=== PATIENT | female | born 1990 | race Caucasian/White ===

== ENCOUNTER → 2018-04-12 12:23 | Outpatient (CLI) | payer MEDICAID, SELFPAY ==
[2017-01-21 12:25] VITALS: BMI 45.1
[2018-04-12 16:17] LABS: Chlamydia Trachomatis by PCR Negative (Negative); Neisserai gonorrhoeae by PCR Negative (Negative); Probe Check PASS; Sample Adequacy Control PASS; Specimen Processing Control PASS
[2018-04-14 10:39] LABS: HPV Reflexed? NOT INDICATED
== END ==
PROVIDERS: Referring Provider Obstetrics & Gynecology; Visit Provider Obstetrics & Gynecology
DX: Z12.4 Encounter for screening for malignant neoplasm of cervix (principal); Z11.3 Encounter for screening for infections with a predominantly sexual mode of transmission
CPT/HCPCS: 87491; 87591; 88175; G0145

== ENCOUNTER 2019-04-06 10:14 | Emergency (ER) | payer SELFPAY ==
[2019-04-06 10:15] VITALS: BP 157/92; PULSE 73; RESP 15; TEMP 36.7; O2SAT 98; BMI 46.7
--- NOTE | 2019-04-06 10:31 | ED.DCSUM_ITS ---
History of Present Illness Chief Complaint: Flank Pain Informant: Patient - Abdominal Pain/Flank Pain Onset: Hours - 7 Context: Sudden Onset - awoke her from sleep Timing: Continuous, Waxes and wanes Quality: Aching Location: LLQ - w/ radiation into left low back Current Severity: Moderate Maximum Severity: Severe Worsened by: Nothing Relieved by: Nothing - Nausea/Vomiting/Emesis GI Symptom: Negative for: Nausea, Vomiting - Diarrhea/Melena/Hematochezia GI Symptom: Negative for: Diarrhea, Melena, Hematochezia Associated Symptoms: Urgency - feels like I need to go but then not much comes out. Negative for: Dysuria, Frequency, Hematuria Narrative: Patient states she had an ovarian cyst on the right side at one point and she is having pain in that area but the pain is colicky and radiating into her low back which is unusual, as well as feeling like she needs to urinate but then having very little or nothing come out. She has never had a kidney stone before. She states pushing on her abdomen makes the pain feel better. She denies any vomiting. No vaginal complaints. History of tubal ligation in the past. This woke her up from sleep this morning, she was fine before she went to bed. - Past Medical History (1) Ovarian cyst Status: Chronic Past Medical History - Allergies and Home Meds Allergies/Adverse Reactions: Allergies morphine Allergy (Verified 04/06/19 10:46) Itching Primary Care Physician: Care Physician,No Primary [Primary Care Provider] - Smoking Status: Never smoker Drugs: None Review of Systems General: Denies: Chills, Fever, Sweats Eyes: Denies: Visual changes - bilaterally, Diplopia ENT: Denies: Rhinorrhea, Sore throat Cardiovascular: Denies: Chest pain, Palpitations Respiratory: Denies: Dyspnea, Cough, Dyspnea on exertion Gastrointestinal: Reports: Abdominal pain. Denies: Nausea, Vomiting, Diarrhea, Melena, Hematochezia Genitourinary: Reports: - - urgency. Denies: Dysuria, Hematuria, Frequency Musculoskeletal: Reports: Back pain. Denies: Extremity Pain Skin: Denies: Rash, Wounds Neurological: Denies: Headache, Weakness, Numbness Physical Exam Vital Signs/Narrative: Vital Signs Temp Pulse Resp BP Pulse Ox 04/06/19 10:15 98.1 F 73 15 157/92 H 98 General: Well nourished, Well developed, Obese, Acute Distress - mild, painful, at times Head: Normocephalic, Atraumatic Eyes: Perrl, EOMI ENT: Moist mucous membranes, No rhinorrhea Neck: Supple, Nontender Cardiovascular: Regular rate, Regular rhythm, No murmurs Respiratory: No distress, CTA bilaterally, Chest nontender Abdomen: Soft, Nontender, Nondistended, Normal bowel sounds. Negative for: Pulsatile mass Back: Nontender, Normal Inspection. Negative for: CVA tenderness Extremities: Nontender, No edema Skin: Normal color, No rash, No Trauma Neurological: Alert, Oriented x3, Cranial nerves II-XII grossly intact, Normal Strength, Normal Sensation, Normal Gait Psychological: Normal affect, Normal Mood Diagnostic/Tx/Re-eval Impressions Abdomen/Pelvis CT 04/06/19 12:28 IMPRESSION: 1.4 cm x 0.6 cm calculus in the distal portion of the right ureter at the level of the ureterovesical junction. Electronically Signed: Nicolás Larios, at 13:01 EST , Service support , 04/06/19 12:28 CT Abd [Abdomen/Pelvis without Cont] [CT] Stat Laboratory Results 04/06/19 11:10 Urine Color Yellow Urine Clarity Sl. Cloudy Urine pH 5.0 Ur Specific [place] 1.020 Urine Protein Negative Urine Glucose (UA) Normal Urine Ketones Negative Urine Occult Blood 150 H Urine Nitrite Negative Urine Bilirubin Negative Urine Urobilinogen Normal Ur Leukocyte Esterase 100 H Urine RBC 10-25 SEEN Urine WBC 10-25 SEEN Ur Squamous Epith Cells 5-10 SEEN Urine Bacteria 1+ Urine Mucus 0 SEEN Urine Test Negative - Medical Decision Making After a dose of Toradol the patient's symptoms are resolved and she is feeling much better. She was able to urinate and it shows 100 leukocyte esterase with 10-20 red and white blood cells with few epithelials. This was sent for culture and she will be placed on empiric antibiotic therapy. She is not septic. She is doing very well clinically and hemodynamically. CT as above shows a long kidney stone at the UVJ. It is possible she could pass this with expectant management. I discussed this with her and reasons to follow-up with urology, and reasons to return the ER which include uncontrollable symptoms, fever, hematuria, urinary retention, and she is comfortable with all of this. ED Disposition - Plan for ED Patient: Disposition: Home or Assisted Living Diagnosis: Ureteral colic, Urolithiasis Instructions: KIDNEY STONE w/ Colic Prescriptions: Smz/Tmp Ds [Bactrim Ds] 1 tab PO BID #14 tab Transmission Status: Pending to [id number] Hydrocodone Bitart/Apap 5-325 [[place] 5MG-325MG] 1 tablet PO Q4H PRN PRN 3 Days #15 tablet PRN Reason: Pain Transmission Status: Sent to [id number] Referrals: Sandra Barbosa MD [STAFF PHYSICIAN] - 1 Week if not improving Additional Instructions: May add ibuprofen or Aleve to the prescription pain medication as needed.
[2019-04-06] MEDS: Ondansetron ODT 4 MG Tablet 8 MG PO (11:07)
[2019-04-06] MEDS: Ketorolac 30 MG/ML Syringe 60 MG IM (11:07)
[2019-04-06 11:21] LABS: Mucous, Urine 0 SEEN /hpf (<or=2+)
[2019-04-06 11:26] LABS: Color, Urine Yellow (Yellow); Glucose, Dipstick Normal (Normal); Ketone-Dipstick Negative (Negative); Leukocyte Esterase-Dipstick 100 /ul (Negative); Nitrite-Dipstick Negative (Negative); Occult Blood-Urine 150 /ul (Negative); Protein-Dipstick Negative (Negative); Urine Bilirubin Dipstick Negative (Negative); Urine Clarity Sl. Cloudy (Clear); Urine Urobilinogen Normal (Normal)
[2019-04-06 11:32] LABS: Bacteria 1+ /hpf (None Seen); Red Blood Cells-Urine 10-25 SEEN /hpf (0-5); Squamous Epithelial Cells - UA 5-10 SEEN /hpf (5-10); White Blood Cells 10-25 SEEN /hpf (0-5)
[2019-04-06 11:33] LABS: Internal QC Validated? YES +Cl - CLEAR BKGD; Pregnancy, Urine Negative Negative
[2019-04-06 12:26] VITALS: RESP 17
--- NOTE | 2019-04-06 12:28 | CT_ITS ---
STUDY: CT ABDOMEN AND PELVIS WITHOUT CONTRAST REASON FOR EXAM: Female, 28 years old. RIGHT FLANK PAIN -- TACHO G-TUBAL RADIATION DOSAGE (If Supplied By Facility): CTDIvol = ( 33.28 ) mGy, DLP = ( 1737.83 ) mGycm TECHNIQUE: Transaxial images were obtained from the dome of the diaphragm to the symphysis pubis without oral contrast, and without intravenous contrast. Sagittal and coronal images were reconstructed. Individualized dose optimization techniques were used for this CT. COMPARISON: None. FINDINGS: The visualized lung bases are unremarkable. The visualized portions of the heart are within normal limits. Normal liver. Normal gallbladder and extrahepatic biliary system. Normal spleen. Normal pancreas. Normal bilateral adrenal glands. There is a 1.4 cm x 0.6 cm calculus in the distal portion of the right ureter at the level of the ureterovesical junction. This causes minimal degree of distal right ureteral dilatation. Normal left kidney. There is a small hiatal hernia. Normal small intestine. Normal colon. The appendix is visualized and appears normal. Normal abdominal aorta. Normal inferior vena cava. Normal retroperitoneum. Normal urinary bladder. Normal abdominal wall. Normal osseous structures. CT/Abdomen/Pelvis without Cont IMPRESSION: 1.4 cm x 0.6 cm calculus in the distal portion of the right ureter at the level of the ureterovesical junction. Electronically Signed: Nicolás Larios, at 13:01 EST , Service support ,
[2019-04-06 13:15] VITALS: BP 142/75; PULSE 62; RESP 18; TEMP 37; O2SAT 100
== END 2019-04-06 13:19 | disposition home or self-care (01) ==
PROVIDERS: Emergency Provider Emergency Medicine
DX: N20.0 Calculus of kidney (principal); E66.9 Obesity, unspecified
CPT/HCPCS: 74176; 81001; 81025; 87086; 87088; 96372; 99283

== ENCOUNTER 2019-08-03 08:57 | Emergency (ER) | payer MEDICAID, SELFPAY ==
[2019-08-03 09:00] VITALS: BP 136/83; PULSE 89; RESP 18; TEMP 36.3; O2SAT 99; BMI 47.6
--- NOTE | 2019-08-03 09:16 | RAD_ITS ---
STUDY: X-RAY LEFT FOOT, GREAT TOE REASON FOR EXAM: Female, 29 years old. NO INJURY. SEVERE BIG TOE PAIN TECHNIQUE: 3 view(s) of the toe were obtained. COMPARISON: None. FINDINGS: Normal visualized metatarsus. Normal metatarsophalangeal (M.T.P) joint. Normal interphalangeal joints. Normal phalanges and interphalangeal joints. Soft tissue swelling. RAD/Toe(s) Min 2 Views IMPRESSION: Soft tissue swelling. Electronically Signed: Nicolás Larios, at 9:59 EDT , Service support ,
--- NOTE | 2019-08-03 09:18 | ED.DCSUM_ITS ---
History of Present Illness Chief Complaint: Lower Extremity Injury Informant: Patient Onset: Today Context: Sudden Onset Timing: Continuous Quality: Pain left foot medial side great toe and first metatarsal Location: Left foot Current Severity: Mild Maximum Severity: Severe Worsened by: Touch, movement, weightbearing Relieved by: Nothing Associated Symptoms: None Narrative: She is a 29-year-old female who presents with left foot pain. She is uncertain whether she may have injured it yesterday while at the pool. She states she was awakened because of severe pain. She localized the pain to the medial distal left foot and specifically great toe and first metatarsal. There is no history of gout or pseudogout. She is on no medication and specifically she is not on a thiazide diuretic. She denies fever, chills night sweats. She denies history of neuropathy. She does not have symptoms consistent with claudication. Prior similar symptoms: No Recent Illness/Hospitalization: No - Past Medical History (1) No significant past medical history Status: Acute Past Medical History - Allergies and Home Meds Allergies/Adverse Reactions: Allergies morphine Allergy (Verified 08/03/19 08:58) Itching Primary Care Physician: Care Physician,No Primary [Primary Care Provider] - Prior records reviewed: No Past Medical History: None Surgical History: noncontributory Lives: Spouse/ Significant Other, With Family Smoking Status: Never smoker Drugs: None Review of Systems General: Denies: Chills, Fever, Malaise, Subjective, Sweats, Weight loss Musculoskeletal: Reports: Swelling, Extremity Pain. Denies: Myalgias, Arthralgias, Neck pain, Back pain Skin: Denies: Rash, Wounds Neurological: Denies: Weakness, Parasthesia, Numbness Endocrine: Denies: Polyuria Hematologic: Denies: Easy bruising, Easy bleeding Physical Exam Vital Signs/Narrative: Vital Signs Temp Pulse Resp BP Pulse Ox 08/03/19 09:00 97.3 F L 89 18 136/83 H 99 Inital Vital Signs reviewed: Yes General: Well nourished, Well developed, Obese, No Acute Distress Head: Normocephalic, Atraumatic Eyes: Perrl, EOMI. Negative for: Pale conjunctiva, Scleral icterus ENT: Moist mucous membranes, No rhinorrhea Cardiovascular: Regular rate, Regular rhythm Respiratory: No distress Back: Nontender, Normal Inspection. Negative for: CVA tenderness, Spinal tenderness Extremities: - - There is pain palpation over the M CT joint of the left great toe. There appears to be swelling. There is slight erythema. There is no warmth, induration, lymphangitis or lymphadenopathy, popliteal. Passive dorsi and plantarflexion of the great toe causes patient exquisite pain. Skin: Normal color, No rash, No Trauma Neurological: Alert, Oriented x3, Cranial nerves II-XII grossly intact, Normal Strength, Normal Sensation. Negative for: Normal Gait Psychological: Normal affect Diagnostic/Tx/Re-eval Chest X-Ray - ED: Read by ED Physician, - - Review x-ray of the left great toe was interpreted by me as negative. There is no fracture, subluxation or dislocation. There is no foreign body. There is no arthritic changes. - Medical Decision Making Differential diagnosis is foot strain, fracture, crystal induced monoarticular arthritis (gout versus pseudogout). X-ray was obtained because of concern for trauma per patient and spouse. She was treated with IV Toradol. If there is no fracture will treat with burst of prednisone. Since x-ray is normal and this started abruptly with significant pain with passive dorsi and plantarflexion of the great toe at the TP joint will treat for crystal-induced arthritis. She was given a dose of prednisone in department and discharged with burst of prednisone. ED Disposition - Plan for ED Patient: Disposition: Home or Assisted Living Diagnosis: Crystal-induced arthritis and synovitis Instructions: ED ARTHRITIS Gout, ED Diet Gout Prescriptions: Prednisone [Deltasone] 40 mg PO DAILY #10 tab Transmission Status: Pending to [email or web address] #[id number] Naproxen [Naprosyn] 500 mg PO BID #14 tab Transmission Status: Pending to [email or web address] #[id number] Referrals: Care Physician,No Primary [Primary Care Provider] - Additional Instructions: If there is no improvement in 2 to 3 days follow-up with your primary care physician assigned to you by your insurance carrier, [facility]
[2019-08-03] MEDS: Ketorolac 15 MG/ML Vial IV (09:43)
[2019-08-03 10:35] VITALS: RESP 15
[2019-08-03] MEDS: predniSONE 20 MG Tablet 60 MG PO (10:36)
== END 2019-08-03 11:11 | disposition home or self-care (01) ==
LOC: ED 10:06
PROVIDERS: Emergency Provider Emergency Medicine
DX: M11.9 Crystal arthropathy, unspecified (principal); M65.9 Synovitis and tenosynovitis, unspecified; E66.9 Obesity, unspecified
CPT/HCPCS: 73660; 96374; 99284; A4216

== ENCOUNTER 2020-11-25 03:05 | Emergency (ER) | payer MEDICAID, SELFPAY ==
[2020-11-25 03:06] VITALS: BP 134/84; PULSE 112; RESP 20; TEMP 36.8; O2SAT 94; BMI 50.8
[2020-11-25 03:09] VITALS: BP 134/84; PULSE 112; RESP 20; TEMP 36.8; O2SAT 94
--- NOTE | 2020-11-25 03:23 | EDS_ITS ---
HPI History of Present Illness Chief Complaint: General Illness Informant: patient Onset/Context/Timing Onset: Days Context: Gradual Onset Timing: Continuous Current Severity: Mild Maximum Severity: Mild Narrative Narrative: 30-year-old female no sniffing past medical history. Currently on no medications. She was diagnosed with COVID-19 on the and stated that her symptoms began on November 18. She is complaining of nausea, vomiting and diarrhea. Mild shortness of breath cough and body aches. She denies any hemoptysis. No dysuria. Feels dehydrated does not think she is holding enough fluids down. Prior similar symptoms: Yes Recent Illness/Hospitalization: No PFSH PFSH Medical History no medical history no medical history Home Medications dexamethasone [Decadron] 6 mg PO DAILY 7 Days #7 tab 11/25/20 [Rx Last Taken Unknown] ondansetron 4 mg PO Q8H PRN #10 tab 11/25/20 [Rx Last Taken Unknown] Allergy/AdvReac Type Severity Reaction Status Date / Time morphine Allergy Itching Verified 08/03/19 08:58 Surgical History H/O tubal ligation Social History Smoking Status: Never smoker ROS ROS ED ROS Narrative Nausea, vomiting, diarrhea myalgias and cough. Review of Systems ROS Unobtainable: Denies due to encephalopathy Constitutional Constitutional ED: Reports chills, fever(s) and subjective Eyes Eyes: Denies change in vision ENT ENT ED: Reports rhinorrhea; Denies ear pain or sore throat Cardiovascular Cardiovascular: Denies chest pain Respiratory/Chest Respiratory/Chest: Reports cough and dyspnea Gastrointestinal Gastrointestinal: Reports diarrhea, nausea and vomiting; Denies abdominal pain, constipation or melena Genitourinary Genitourinary ED: Denies dysuria Musculoskeletal Musculoskeletal: Reports myalgias Integumentary Denies rash Neurologic Neurologic: Denies headache(s) Psychiatric Psychiatric: Denies depression Endocrine Endocrinology: Denies polyuria Allergic/Immunologic Allergic/Immunologic ED: Denies urticaria EXAM Physical Exam Narrative Exam Narrative: Young female no acute distress. Vital signs stable afebrile. HEENT exam mild dry mucous memories. Neck nontender no meningismus. Lungs clear to auscultation bilaterally. Heart regular rhythm rate about 110 no murmur. Abdomen obese but soft nontender normal bowel sounds no peritoneal signs. Patient moving all 4 extremities. Neurologically awake and alert with no focal motor deficits. Const Vital Signs: 11/25/20 03:06 11/25/20 03:09 Temperature 98.3 F 98.3 F Temperature Source Temporal Temporal Pulse Rate 112 H 112 H Respiratory Rate 20 H 20 H Respiratory Effort Short of Breath Respiratory Pattern Normal Blood Pressure 134/84 H 134/84 H Blood Pressure Mean 100 100 Pulse Ox 94 94 Oxygen Delivery Method Room Air Room Air Positive well nourished, well developed and obese; Negative for cachectic, contractures or unkempt General Appearance ED: well developed and NAD; Negative for unkempt, cachectic, contractures, cyanotic, diaphoretic or pallor Nutritional Appearance: obese; Negative for cachectic HEENT Reports dry mucous membranes Negative for trauma or tenderness Mouth ED: Yes dry mucous membranes Mouth: dry mucous membranes Eyes PERRL and EOMs intact bilaterally Neck no lymphadenopathy, supple and no JVD General: Negative for tenderness Chest Wall inspection of chest normal and palpation of chest normal Resp normal respiratory effort and clear to auscultation bilaterally Effort and Inspection: Negative for pain with movement Auscultation: Negative for rales, rhonchi or wheezes Cardio regular rhythm, S1 normal heart sound, S2 normal heart sound and no murmurs Rate: tachycardic GI normal to inspection, nondistended, normoactive bowel sounds, non-tender, non- distended and no masses Inspection: Negative for abdominal distention Auscultation: normoactive bowel sounds Palpation: soft; Negative for tender, guarding or rebound tenderness present Back/Spine no CVA tenderness General Back: Negative for CVA tenderness Extremity normal to inspection General Extremety ED: Negative for edema or tenderness General Extremity: Negative for edema Neuro oriented x3 and CN's II-XII intact bilaterally Sensorium / Orientation: alert; Negative for orientation impaired, lethargic or stuporous Motor Exam: strength 5/5 throughout Psych mental status grossly normal Appearance: Negative for unkempt Mood & Affect: Negative for depressed or tearful Skin no rashes or lesions noted and no wounds General Skin Exam: Negative for jaundice or pallor MDM MDM MDM Narrative Medical decision making narrative: 30-year-old female unvaccinated with Covid symptoms. She will be treated with IV fluids. Screening labs and chest x-ray. IV Zofran. She does not look septic, toxic nor is she hypoxic. Repeat exam at 4:55 AM patient is doing well. She is comfortable being discharged home. She is on Decadron and Zofran as needed. I will refer her to the monoclonal antibody center here in the hospital and they can discuss with her on Thursday if she be a candidate. She has had symptoms now for 7 days a started Thursday 1 week ago. Lab Data Attestation: I reviewed the patient's lab results. Lab results narrative: CBC shows a white count of 5. Hemoglobin of 14. Plate lets of 149. Chest x-ray consistent with Covid. Chemistries unremarkable. Normal renal function. Normal gap. Labs: Laboratory Results - last 24 hr 11/25/20 11/25/20 03:38 03:38 WBC 5.8 RBC 5.12 Hgb 14.5 Hct 44.4 MCV 86.7 MCH 28.3 MCHC 32.7 RDW Std Deviation 40.2 RDW Coeff of Shaila 12.6 Plt Count 149 L MPV 10.5 Immature Gran % (Auto) 0.300 Neut % (Auto) 69.6 Lymph % (Auto) 22.4 [place] % (Auto) 7.5 Eos % (Auto) 0.0 Baso % (Auto) 0.2 Absolute Neuts (auto) 4.0 Absolute Lymphs (auto) 1.29 Nucleated RBC % 0 Sodium 134 L Potassium 4.5 Chloride 103 Carbon Dioxide 22.0 Anion Gap 9 BUN 8 Creatinine 0.72 Estim Creat Clear Calc 107.93 Est GFR (MDRD) Af Amer 123 Est GFR (MDRD) Non-Af 102 BUN/Creatinine Ratio 11.1 Glucose 106 Calcium 8.4 L Radiography Chest X-Ray - ED: 1 View, Read by ED Physician, Right Infiltrate and Left Infiltrate Diagnostic Testing: Radiology Impression Chest X-Ray 11/25/20 03:50 IMPRESSION: Multifocal pneumonia in both lungs. Electronically Signed: Peter Alvarado MD at 4:08 EDT Tel , Service support , Chest x-ray single view portable consistent with Covid pneumonitis with bilate ral infiltrates. Normal cardiac silhouette. Interpreted by myself. Discharge Plan Triage Chief Complaint: General Illness ED Provider: Hugo Ann Dx/Rx/DC Orders Clinical Impression: COVID-19, Vomiting Instructions: Human Coronaviruses Prescriptions: New dexamethasone [Decadron] 6 mg tablet 6 mg PO DAILY 7 Days Qty: 7 RF: 0 ondansetron 4 mg tablet,disintegrating 4 mg PO Q8H PRN (Reason: nausea and vomiting) Qty: 10 RF: 0 Primary Care Provider: Care Physician,No Primary Referrals: Tano Hermosillo MD [NON-STAFF] - 3-5 Days if not improving Care Physician,No Primary [Primary Care Provider] - Activity Restrictions/Additional Instructions: Plenty of fluids and rest. Zofran as needed for nausea. Motrin and Tylenol for fever and body aches. Follow-up with your doctor if not improving. Return emergency department if feeling worse. Daily Decadron. Disposition Disposition: Home, Self Care
[2020-11-25] MEDS: Ondansetron 4 MG/2 ML Vial IV (03:36)
[2020-11-25] MEDS: dexAMETHasone 10 MG/ML Vial IV (03:36)
[2020-11-25] MEDS: 0.9% Normal Saline 1,000 ML 1000 ML IV (03:36)
[2020-11-25 03:47] LABS: Absolute Lymphocyte Count 1.29 X10^3/uL (0.83-4.51); Basophil# 0.01 X10^3/uL; Basophil% 0.2 % (0-1); Hematocrit 44.4 % (37-47); Hemoglobin 14.5 g/dL (12.0-15.0); Lymphocyte # 1.29 X10^3/ul (0.83-4.51); Lymphocyte % 22.4 % (19-41); Mean Corp Hgb Conc 32.7 g/dL (32-36); Mean Corpuscular Hgb 28.3 pg (27.0-32.0); Mean Corpuscular Volume 86.7 fL (81-99); Mean Platelet Vol. 10.5 fl (6.2-12.0); Monocyte# 0.43 X10^3/uL; Monocyte% 7.5 % (0-10); NRBC Flagged by Analyzer 0 % (0-5); Neutrophil % 69.6 % (47-70); Platelet Count 149 K/mm3 (150-450); RBC Distribution Width CV 12.6 % (11.6-14.6); RBC Distribution Width SD 40.2 fl (35.1-43.9); Red Blood Count 5.12 M/mm3 (4.2-5.4); White Blood Count 5.8 K/mm3 (4.4-11.0)
--- NOTE | 2020-11-25 03:50 | RAD_ITS ---
STUDY: X-RAY CHEST REASON FOR EXAM: Female, 30 years old. Covid TECHNIQUE: Portable, upright, AP chest radiograph COMPARISON: None. FINDINGS: Diffuse bilateral patchy pulmonary opacities. There is no demonstrated pleural abnormality. Normal size heart. Normal mediastinum and genny. Normal visualized pulmonary arteries. Normal visualized aortic arch and descending thoracic aorta. Normal visualized thoracic spine. Normal visualized ribs, clavicles, and shoulders. There is no demonstrated abnormality of the visualized soft tissue structures of the upper abdomen. RAD/Chest 1 View (Portable) IMPRESSION: Multifocal pneumonia in both lungs. Electronically Signed: Peter Alvarado MD at 4:08 EDT Tel , Service support ,
[2020-11-25 04:06] LABS: Anion Gap 9 (5-15); BUN 8 mg/dL (7-18); BUN/Creat Ratio 11.1 RATIO (10-20); Calcium,Total 8.4 mg/dL (8.5-10.1); Chloride 103 mmol/L (98-107); Creatinine, Serum 0.72 mg/dL (0.55-1.02); EST Glomerular Filtration Rate 102 mL/min (>60); Est Glom Filt Rate - Afr Amer 123 mL/min (>60); Estimated Creatinine Clearance 107.93 ml/min; Glucose 106 mg/dL (74-106); Potassium 4.5 mmol/L (3.5-5.1); Sodium Level 134 mmol/L (136-145)
[2020-11-25 05:11] VITALS: BP 128/74; PULSE 88; RESP 20; O2SAT 99
== END 2020-11-25 05:12 | disposition home or self-care (01) ==
PROVIDERS: Emergency Provider Emergency Medicine
DX: U07.1 COVID-19 (principal); R11.2 Nausea with vomiting, unspecified; E66.9 Obesity, unspecified
CPT/HCPCS: 71045; 80048; 85025; 96361; 96374; 96375; 99283; J7030; A4216; J2405

== ENCOUNTER 2024-06-22 14:24 | Emergency (ER) | payer MEDICAID, SELFPAY ==
[2024-06-22 14:25] VITALS: BP 163/95; PULSE 96; RESP 20; TEMP 36.6; O2SAT 98; BMI 48.6
--- NOTE | 2024-06-22 14:58 | EDS_ITS ---
HPI History of Present Illness Chief Complaint: Nausea/Vomiting Narrative Narrative: Patient is a 34-year-old female with no known significant past medical history who presents to the emergency department with a chief complaint of nausea vomiting not tolerating oral intake since Thursday. She states that she cannot keep anything down and does not recall any sick contacts. Patient denies any previous abdominal surgeries outside of a tubal ligation. Patient states that she is passing gas and the diarrhea resolved yesterday. Patient's complaint of lightheadedness she states that she went to urgent care and they recommended that she come to the emergency department as she is likely dehydrated and needs IV fluids. Patient states that she does not have any abdominal pain. PFSH PFSH Home Medications ?Medication ?Instructions ?Recorded ?Last Taken ?Type dicyclomine 20 mg tablet 20 mg PO TID PRN abdominal p ain 06/22/24 Unknown Rx #30 tabs ondansetron 4 mg disintegrating 4 mg PO Q6H PRN nausea and 06/22/24 Unknown Rx tablet vomiting #20 tabs Allergy/AdvReac Type Severity Reaction Status Date / Time morphine Allergy Itching Verified 06/22/24 14:25 Surgical History H/O tubal ligation Social History Smoking Status: Never smoker ROS ROS ED ROS Narrative Constitutional: Complains of lightheadedness denies fevers, chills, headaches, dizziness Eyes: Denies change in vision double vision blurry vision Cardiovascular: Denies chest pain Respiratory: Denies shortness of breath, coughing Abdomen: Complains of nausea vomiting denies abdominal pain and states that her diet resolved yesterday : Denies urinary symptoms Neurological: Denies numbness, weakness, tingling Musculoskeletal: Denies back pain Skin: Denies rashes or lesions EXAM Physical Exam Narrative Exam Narrative: In general: Patient lying in bed rest comfortably did not appear to be in acute distress Head: Atraumatic, normocephalic Eyes: PERRL bilaterally, EOMI bilaterally, no conjunctival injection noted Neck: Soft, supple, trachea midline Cardiovascular: Regular rate and rhythm Respiratory: Clear to auscultation bilaterally Abdomen: Soft, nondistended, nontender to palpation Extremities: +5/5 strength noted in the bilateral upper and lower extremities, radial pulses +2/4 in the bilateral extremities, no pedal edema exam Neurological: Patient following commands knew that she who was at [facility] the year is 2024 Skin: Warm, dry, intact no rashes or lesions noted Const Vital Signs: 06/22/24 14:25 06/22/24 16:25 Temperature 97.8 F Temperature Source Oral Pulse Rate 96 74 Respiratory Rate 20 H 16 Blood Pressure 163/95 H 146/84 H Blood Pressure Mean 117 104 Pulse Ox 98 99 Oxygen Delivery Method Room Air MDM MDM MDM Narrative Medical decision making narrative: Patient is a 34-year-old female who presented to the emergency department with a chief complaint of nausea vomiting not tolerating oral intake since Thursday. On the differential diagnosis includes but not limited to viral gastroenteritis, ectopic . Once workup is obtained reviewed she will be reevaluated. Patient denies any tobacco use, drug use and states that she will drink on the weekends but denies daily alcohol use. Patient be given IV fluid and Zofran. Patient CBC was reviewed and showed no evidence leukocytosis white blood count normal 8.8, hemoglobin 14.2, platelet count was normal at 277. Sodium normal 139, potassium normal 3.8, creatinine normal 0.79. Patient AST and ALT were 15 and 17 respectively, lipase normal at 23. Patient urinalysis did not show any evidence o infection and test was negative. Reevaluation the patient she is feeling much better she would like to go home at this point time. Patient is requesting work note which will be provided. Patient was encouraged to start with bland diet and advance as tolerated follow- up with her primary care physician outpatient setting return with worsening symptoms or concerns she is agreeable this plan all question concerns answered she was discharged home in stable condition. Lab Data Labs: Laboratory Results - last 24 hr 06/22/24 06/22/24 15:05 16:05 WBC 8.8 RBC 4.82 Hgb 14.2 Hct 42.0 MCV 87.1 MCH 29.5 MCHC 33.8 RDW Std Deviation 40.2 RDW Coeff of Shaila 12.6 Plt Count 277 MPV 9.7 Immature Gran % (Auto) 0.300 Neut % (Auto) 58.3 Lymph % (Auto) 33.8 [place] % (Auto) 6.9 Eos % (Auto) 0.5 Baso % (Auto) 0.2 Absolute Neuts (auto) 5.1 Absolute Lymphs (auto) 2.96 Nucleated RBC % 0 Sodium 139 Potassium 3.8 Chloride 105 Carbon Dioxide 23.6 Anion Gap 11 BUN 6 Creatinine 0.79 Estim Creat Clear Calc 144.26 Est GFR (MDRD) Non-Af 102 BUN/Creatinine Ratio 7.1 L Glucose 99 Calcium 9.3 Total Bilirubin 0.54 AST 15 ALT 17 Alkaline Phosphatase 94 Total Protein 8.1 Albumin 4.2 Globulin 3.9 Albumin/Globulin Ratio 1.1 Lipase 23 Urine Color Yellow Urine Clarity Sl. Cloudy Urine pH 6.5 Ur Specific [place] 1.010 Urine Protein TNP Urine Glucose (UA) Normal Urine Ketones Negative Urine Occult Blood 50 H Urine Nitrite Negative Urine Bilirubin Negative Urine Urobilinogen Normal Ur Leukocyte Esterase 100 H Urine RBC 0-5 SEEN Urine WBC 0-5 SEEN Ur Squamous Epith Cells 0-5 SEEN Urine Bacteria 1+ Urine Mucus 0 SEEN U Random Total Protein 13.1 H Urine Test Negative Discharge Plan Triage Chief Complaint: Nausea/Vomiting ED Provider: Alpesh Neil Dx/Rx/DC Orders Clinical Impression: Nausea & vomiting Prescriptions: New ondansetron 4 mg tablet,disintegrating 4 mg PO Q6H PRN (Reason: nausea and vomiting) Qty: 20 0RF dicyclomine 20 mg tablet 20 mg PO TID PRN (Reason: abdominal pain) Qty: 30 0RF Stand Alone Forms: ED Work / School Excuse Primary Care Provider: Royce Nina Referrals: Royce Nina MD [Primary Care Provider] - Activity Restrictions/Additional Instructions: Take prescriptions as prescribed. Your blood work here did not show any acute findings. Start with bland diet and advance as tolerated. Return with worsening symptoms or other concerns Print Language: Macedonian Disposition Disposition: Home, Self Care
[2024-06-22] MEDS: 0.9% Normal Saline (1000mL) 1,000 ML 999 ML IV (15:06)
[2024-06-22] MEDS: Ondansetron 4 MG/2 ML Vial IV (15:06)
[2024-06-22 15:15] LABS: Absolute Lymphocyte Count 2.96 X10^3/uL (0.83-4.51); Absolute Neutrophil Count 5.1 X10^3/uL (2.0-7.7); Basophil# 0.02 X10^3/uL; Basophil% 0.2 % (0-1); Eosinophil# 0.04 X10^3/uL; Eosinophils% 0.5 % (0-5); Hemoglobin 14.2 g/dL (12.0-15.0); Lymphocyte # 2.96 X10^3/ul (0.83-4.51); Lymphocyte % 33.8 % (19-41); Mean Corp Hgb Conc 33.8 g/dL (32-36); Mean Corpuscular Hgb 29.5 pg (27.0-32.0); Mean Corpuscular Volume 87.1 fL (81-99); Mean Platelet Vol. 9.7 fl (6.2-12.0); Monocyte% 6.9 % (0-10); NRBC Flagged by Analyzer 0 % (0-5); Neutrophil % 58.3 % (47-70); Platelet Count 277 K/mm3 (150-450); RBC Distribution Width CV 12.6 % (11.6-14.6); RBC Distribution Width SD 40.2 fl (35.1-43.9); Red Blood Count 4.82 M/mm3 (4.2-5.4); White Blood Count 8.8 K/mm3 (4.4-11.0)
[2024-06-22 15:59] LABS: ALB/GLOB Ratio 1.1 RATIO (0.9-2.4); AST(SGOT) 15 U/L (<=31); Alanine Aminotransfer ALT/SGPT 17 U/L (<=34); Albumin, Serum 4.2 g/dL (3.5-5.0); Alkaline Phosphatase 94 U/L (35-104); Anion Gap 11 (5-15); BUN 6 mg/dL (4-19); BUN/Creat Ratio 7.1 RATIO (10-20); Calcium,Total 9.3 mg/dL (7.6-11.0); Carbon Dioxide 23.6 mmol/L (21.0-32.0); Chloride 105 mmol/L (98-108); Creatinine, Serum 0.79 mg/dL (0.70-1.20); EST Glomerular Filtration Rate 102 (>60); Estimated Creatinine Clearance 144.26 ml/min (50-250); Globulin 3.9 g/dL (2.2-4.2); Glucose 99 mg/dL (70-99); Lipase 23 U/L (13-75); Potassium 3.8 mmol/L (3.3-5.1); Protein, Total 8.1 g/dL (5.9-8.4); Sodium Level 139 mmol/L (133-145); Total Bilirubin 0.54 mg/dL (0.00-1.30)
[2024-06-22 16:10] LABS: Mucous, Urine 0 SEEN /hpf (<or=2+)
[2024-06-22 16:25] VITALS: BP 146/84; PULSE 74; RESP 16; O2SAT 99
[2024-06-22 16:40] LABS: Internal QC Validated? YES +Cl - CLEAR BKGD; Pregnancy, Urine Negative Negative; Record Kit Lot#,Urine Preg 929381
[2024-06-22 16:44] LABS: Color, Urine Yellow (Yellow); Glucose, Dipstick Normal (Normal); Ketone-Dipstick Negative (Negative); Leukocyte Esterase-Dipstick 100 /ul (Negative); Nitrite-Dipstick Negative (Negative); Occult Blood-Urine 50 /ul (Negative); Urine Bilirubin Dipstick Negative (Negative); Urine Clarity Sl. Cloudy (Clear); Urine Urobilinogen Normal (Normal); Urine pH 6.5 (5.0 - 8.0)
[2024-06-22 17:44] LABS: Red Blood Cells-Urine 0-5 SEEN /hpf (0-5); Squamous Epithelial Cells - UA 0-5 SEEN /hpf (5-10)
[2024-06-22 17:45] LABS: Bacteria 1+ /hpf (None Seen); Protein, Urine (Random) 13.1 mg/dL (0.0-12.0); White Blood Cells 0-5 SEEN /hpf (0-5)
[2024-06-22 18:00] VITALS: BP 132/77; PULSE 79; RESP 16; O2SAT 95
[2024-06-22 18:11] VITALS: BP 132/77; PULSE 79; RESP 16; TEMP 36.4; O2SAT 95
== END 2024-06-22 18:14 | disposition home or self-care (01) ==
PROVIDERS: Emergency Provider Emergency Medicine; PCP Family Medicine; Referring Provider Emergency Medicine; Visit Provider Emergency Medicine
DX: R11.2 Nausea with vomiting, unspecified (principal); R42 Dizziness and giddiness
CPT/HCPCS: 80053; 81001; 81025; 83690; 84156; 85025; 87631; 96361; 96374; 99283; A4216; J2405